=== PATIENT | male | born 1990 | race Caucasian/White ===

== ENCOUNTER → 2016-09-25 | Outpatient (CLI) | payer OTHER ==
[~2016-09-25] MED LIST: DOXY-278 PO
[2016-09-25 13:45] LABS: INR 1.05
[2016-09-25 13:49] LABS: MEAN CORPUSCULAR HEMOGLOBIN 27.7 pg (27.0-33.0); MEAN CORPUSCULAR HGB CONC 33.7 g/dl (32.0-36.5); MEAN CORPUSCULAR VOLUME 82.4 fl (80.0-96.0); RED CELL DISTRIBUTION WIDTH 12.6 % (11.5-14.5); WHITE BLOOD COUNT 8.3 K/mm3 (4.0-10.0)
[2016-09-25 13:57] LABS: ANION GAP 10 MEQ/L (8-16); BLOOD UREA NITROGEN 15 MG/DL (7-18); CALCIUM LEVEL 9.2 MG/DL (8.5-10.1); CARBON DIOXIDE LEVEL 26 MEQ/L (21-32); CHLORIDE LEVEL 107 MEQ/L (98-107); CREATININE FOR GFR 0.96 MG/DL (0.70-1.30); GLOMERULAR FILTRATION RATE > 60.0 (>60); GLUCOSE, FASTING 87 MG/DL (70-105); SODIUM LEVEL 143 MEQ/L (136-145)
== END ==
LOC: M SMT 09:28
PROVIDERS: ATTEND Nurse Practitioner Women's Health
DX: Z01.818 Encounter for other preprocedural examination (principal); N50.9 Disorder of male genital organs, unspecified

== ENCOUNTER → 2016-10-02 | Day surgery (SDC) | payer OTHER ==
[~2016-10-02] VITALS: Ht 177.8 cm; Wt 127.0 kg
[~2016-10-02] MED LIST changes: +BACT800T5 PO; +BACTRIM 160MG/800MG DS TAB PO SCH; +BUPIVACAINE HCL 0.25% 10 ML VIAL As Ordered ONE; +BUPIVACAINE HCL 0.25% 30 ML VIAL XX ONE; +KETOROLAC 60 MG/2 ML VIAL (J1885) As Ordered ONE; +LIDOCAINE 2% INJ 100 MG/5 ML SDV (FOR ANES.) As Ordered ONE; +LIDOCAINE 2% MDV 20 ML VIAL As Ordered ONE; +LIDOCAINE 2% MDV 20 ML VIAL XX ONE; +LR 1,000 ML IV SCH; +MEPERIDINE INJ 25 MG/ML VIAL (J2175) As Ordered ONE; +MEPERIDINE INJ 25 MG/ML VIAL (J2175) IV PRN; +MIDAZOLAM INJ 2 MG/2 ML VIAL (J2250) As Ordered ONE; +ONDANSETRON 4MG/2ML VIAL (J2405) As Ordered ONE; +PERCOCET 5MG/325MG TAB As Ordered ONE; +PERCOCET 5MG/325MG TAB PO SCH; +PERCOCET PO; +PROPOFOL 200 MG/20 ML VIAL As Ordered ONE; +ceFAZolin SOD 1 GM in D5W MINI-BAG PLUS 50 ML IV ONE; +dexameTHASONE 4 MG/ML 1ML VIAL (J1100) As Ordered ONE; +fentaNYL 100 MCG/2 ML INJECTION (J3010) As Ordered ONE; +fentaNYL 100 MCG/2 ML INJECTION (J3010) IV PRN; +fentaNYL 250 MCG/5 ML INJECTION (J3010) As Ordered ONE
[2016-10-02] MEDS: MEPERIDINE INJ 25 MG/ML VIAL (J2175) IV PRN ×2 (13:21→13:26)
[2016-10-02] MEDS: PERCOCET 5MG/325MG TAB PO PRN ×2 (13:40→14:30)
[2016-10-02 14:45] VITALS: BP 145/90
--- NOTE | 2016-10-03 06:39 | RO ---
DATE OF PROCEDURE: 10/02/2016 PREOPERATIVE DIAGNOSIS: Right testicular neoplasm. POSTOPERATIVE DIAGNOSIS: Right testicular neoplasm. PROCEDURE: Right radical orchiectomy. SURGEON: Dr. Elías Stevenson GARMENT SUPERVISOR: None. ANESTHESIA: General. COMPLICATIONS: None. ESTIMATED BLOOD LOSS: N/A. HISTORY OF PRESENT ILLNESS: This is a 25-year-old male patient that actually has a right testicular neoplasm, hard rock per patient. The patient has been treated with antibiotics without resolution. He has no pain at all. For this reason, he has consented for a right radical orchiectomy. PROCEDURE DESCRIPTION: In a patient under general anesthesia in supine position, after prepping and draping the area of concern which included the entire genitalia and abdomen, we started by doing an incision in the right inguinal canal, on top of the internal inguinal canal for about 5 cm in length transverse incision with a cold knife 15 blade. We then proceeded with electro Bovie cautery to cut the Charity and Camper's fascia. Once we found the sternal oblique fascia, we opened the external inguinal ring following the external oblique fascia fibers in a longitudinal oblique fashion. We then proceeded to evaluate and see the right spermatic cord. We dissected the right spermatic cord off the genitofemoral nerve and inguinal nerve, the inguinal nerve. We the cremasteric fibers also and dissected the spermatic cord completely. We passed a Pedro drain around it. We then pushed on the scrotal sac to actually push the testicle through the incision in the inguinal area. We the gubernaculum testis with electro Bovie cautery and ligated the gubernaculum testis with #3-0 silk stitch. Once the testicle was brought through the inguinal incision, we actually placed three clamps of hemostats to the base of the spermatic cord in the entrance of the peritoneum. I then cut between the first and second hemostats and the specimen was sent as right radical orchiectomy. We then proceeded to put an suture stitch, #0 silk stitch in the base of the first hemostat and took out the hemostat, tied the stitch times three. We then placed a second stitch with a #0 silk stitch below the remaining hemostat and removed the hemostat. We then placed a right angle clamp and clamped the spermatic cord stump again and placed a #0 silk tie also so the spermatic cord was secured times three with silks. There was no bleeding vessels. At that moment in time, we placed anesthesia in the inguinal nerve and then proceed to close the external oblique fascia in a running fashion with #3-0 Vicryl. We then proceeded to close the Camper's and Charity's fascia with a chromic #3-0 in separate stitches. We closed the skin with subcuticular #4-0 Monocryl. We placed Mastisol, Steri-Strips, Telfa and Tegaderm on top of the wound. PLAN: The patient will go home today with antibiotics and pain medication. Followup at [facility] in about 2 weeks. There were no complications during surgery.
== END | disposition home or self-care (01) ==
LOC: M SDC 09:19
PROVIDERS: ATTEND Urology
DX: D40.11 Neoplasm of uncertain behavior of right testis (principal); N50.9 Disorder of male genital organs, unspecified; Z72.0 Tobacco use
CPT/HCPCS: 54530; 88309; J0690; J1100; J1885; J2175; J2250; J2405; J3010

== ENCOUNTER → 2016-10-04 | Outpatient (CLI) | payer OTHER ==
[~2016-10-04] MED LIST changes: -BACTRIM 160MG/800MG DS TAB PO SCH; -BUPIVACAINE HCL 0.25% 10 ML VIAL As Ordered ONE; -BUPIVACAINE HCL 0.25% 30 ML VIAL XX ONE; +ISOVUE-370 76% 100ML VIAL (Q9967) As Ordered ONE; -KETOROLAC 60 MG/2 ML VIAL (J1885) As Ordered ONE; -LIDOCAINE 2% INJ 100 MG/5 ML SDV (FOR ANES.) As Ordered ONE; -LIDOCAINE 2% MDV 20 ML VIAL As Ordered ONE; -LIDOCAINE 2% MDV 20 ML VIAL XX ONE; -LR 1,000 ML IV SCH; -MEPERIDINE INJ 25 MG/ML VIAL (J2175) As Ordered ONE; -MEPERIDINE INJ 25 MG/ML VIAL (J2175) IV PRN; -MIDAZOLAM INJ 2 MG/2 ML VIAL (J2250) As Ordered ONE; -ONDANSETRON 4MG/2ML VIAL (J2405) As Ordered ONE; -PERCOCET 5MG/325MG TAB As Ordered ONE; -PERCOCET 5MG/325MG TAB PO SCH; -PROPOFOL 200 MG/20 ML VIAL As Ordered ONE; -ceFAZolin SOD 1 GM in D5W MINI-BAG PLUS 50 ML IV ONE; -dexameTHASONE 4 MG/ML 1ML VIAL (J1100) As Ordered ONE; -fentaNYL 100 MCG/2 ML INJECTION (J3010) As Ordered ONE; -fentaNYL 100 MCG/2 ML INJECTION (J3010) IV PRN; -fentaNYL 250 MCG/5 ML INJECTION (J3010) As Ordered ONE
--- NOTE | 2016-10-04 21:00 | REP ---
CT ABDOMEN AND PELVIS WITHOUT AND WITH CONTRAST: 10/04/2016. Clinical history: Testicular mass, preoperative testing/staging. Right orchiectomy indicated on patient's history sheet. Technique: Scanning through the abdomen before contrast followed by bolus of 100 ml of Isovue 370 and scanning through the abdomen and pelvis with rescanning after renal delay. Coronal and sagittal reconstructions reviewed. Bone windows also reviewed. No prior studies are available the time of this dictation. CT abdomen: Lung bases show the right side clear. In the left lower lobe there is a peripheral nodule, subpleural, about 9 mm. Prominent vessel extending to it. No effusion or other nodule/mass. No pleural thickening. I see no cardiomegaly, pericardial thickening or effusion. There is no hepatomegaly, splenomegaly, focal hepatic or splenic mass nor fatty infiltration. Gallbladder retracted. There is retained food in the stomach. No calcified gallstone. Pancreas unremarkable. Adrenal glands without nodule or mass. Kidneys show punctate calcification in pyramid, interpolar region, right about 3 mm and another cortical calcification interpolar region posteriorly about 2 mm. No hydronephrosis. There is a 4 mm stone in a pyramid or savannah of the lower pole on the right. Left side without stone. No hydronephrosis, hydroureter, cyst or solid mass. No perinephric fluid. The aorta is without aneurysm. There is aortocaval node measuring 13 mm seen on image 58. There are other nearby nodes to it about 9 mm on image 60, 15 mm on image 72 and a few tiny periaortic nodes on the left, the largest of which are 5.4 mm on image 49. Pancreas shows no mass or ductal dilatation or adjacent adenopathy. No pathologic sized peripancreatic nodes. There are a few mesenteric nodes. Most of these are 6 mm or smaller. There are scattered nodes adjacent to the cecum with a normal appendix. The nodes are 3 to 6 mm in size. No dilated small bowel loops. Colon shows no sign of colitis, diverticulitis, stricture or mass. Midline abdominal wall without hernia. The bone windows show lumbar and lower thoracic spine, posterior elements and the visualized ribs to be grossly intact. CT pelvis: The bony hips, pelvis, sacrum, SI joints and symphysis pubis were unremarkable. Ureters show no dilatation or stone. Bladder is without wall thickening, stone or mass. Distal left colon, sigmoid and rectum unremarkable as are the distal small bowel loops. I do not see pelvic lymphadenopathy. No inguinal or ventral hernia. There is a healing right inguinal incision evident. No ventral hernia in the pelvis. Seminal vesicles and prostate unremarkable. Intrinsic and extrinsic pelvic, hip proximal thigh and buttock musculature all unremarkable. Impression: 1. There has been prior inguinal surgery on the right which may reflect the patient's stated history of right orchiectomy. 2. Periaortic adenopathy up to 15 mm in the aortocaval region anterior to the aorta and vena cava with smaller nodes periaortic and other scattered mesenteric nodes and pericecal nodes with the size as described above. 2. Some nephrolithiasis without hydronephrosis, hydroureter, ureteral stone or bladder stone. 3. The liver, spleen, gallbladder, pancreas, adrenal glands and left kidney unremarkable. Signed by Kwaku Maldonado MD 10/05/2016 07:21 P
== END ==
LOC: M RAD 17:07
PROVIDERS: ATTEND Nurse Practitioner Women's Health
DX: N50.9 Disorder of male genital organs, unspecified (principal)
CPT/HCPCS: 74178; Q9967

== ENCOUNTER → 2016-10-23 | Outpatient (CLI) | payer OTHER ==
[~2016-10-23] MED LIST changes: -ISOVUE-370 76% 100ML VIAL (Q9967) As Ordered ONE
--- NOTE | 2016-10-23 09:21 | REP ---
Chest two views HISTORY: Testicular cancer Comparison: None The lungs are clear. The heart is normal in size. The pulmonary vasculature is normal in appearance. The bony structure is intact. IMPRESSION: No acute disease. Signed by Abdullahi Nolasco MD 10/23/2016 09:13 A
[2016-10-23 13:30] LABS: MEAN CORPUSCULAR HEMOGLOBIN 27.8 pg (27.0-33.0); MEAN CORPUSCULAR HGB CONC 33.9 g/dl (32.0-36.5); MEAN CORPUSCULAR VOLUME 82.1 fl (80.0-96.0); RED CELL DISTRIBUTION WIDTH 12.8 % (11.5-14.5); WHITE BLOOD COUNT 7.4 K/mm3 (4.0-10.0)
[2016-10-23 13:44] LABS: ANION GAP 6 MEQ/L (8-16); BLOOD UREA NITROGEN 10 MG/DL (7-18); CALCIUM LEVEL 8.8 MG/DL (8.5-10.1); CARBON DIOXIDE LEVEL 29 MEQ/L (21-32); CHLORIDE LEVEL 105 MEQ/L (98-107); CREATININE FOR GFR 0.85 MG/DL (0.70-1.30); GLOMERULAR FILTRATION RATE > 60.0 (>60); GLUCOSE, FASTING 87 MG/DL (70-105); INR 1.02; POTASSIUM SERUM 3.8 MEQ/L (3.5-5.1); SODIUM LEVEL 140 MEQ/L (136-145)
== END ==
LOC: M SMT 08:34
PROVIDERS: ATTEND Urology
DX: C62.91 Malignant neoplasm of right testis, unspecified whether descended or undescended (principal)

== ENCOUNTER → 2016-10-23 | Outpatient (CLI) | payer OTHER ==
--- NOTE | 2016-10-23 11:21 | ECGEPIP ---
Stationary ECG Study [facility] Test Date: 2016-10-23 Pat Name: GALA MAI Department: Room: - Gender: M Motion Picture Director: : 1990 Requested By: RADHA Barksdale Order Number: [id number] Reading MD: Michael Bonilla Measurements Intervals [place] Rate: 72 P: 8 [place]: 184 QRS: -10 QRSD: 115 T: 11 QT: 375 QTc: 411 Interpretive Statements SINUS RHYTHM MODERATE INTRAVENTRICULAR CONDUCTION DELAY Comparison tracing not on file Electronically Signed On 10-23-2016 11:20:53 EST by iMchael Bonilla
== END ==
LOC: M EKG 09:37
PROVIDERS: ATTEND Urology
DX: C62.91 Malignant neoplasm of right testis, unspecified whether descended or undescended (principal)

== ENCOUNTER 2016-11-05 11:00 | Inpatient (IN) | payer OTHER ==
--- NOTE | 2016-11-02 12:14 | CR ---
DATE OF CONSULTATION: 11/01/2016 PREOPERATIVE CLEARANCE CONSULTATION I was asked to him for preoperative clearance. He is going to be undergoing retroperitoneal lymphadenectomy by Dr. Stevenson on 11/12/2016. Initially was scheduled for 11/05/2016, but it is going to be on 11/12/2016 at [facility]. The patient did see Dr. Stevenson for a radical orchiectomy for testicular cancer. 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 The surgery was performed on 10/02/2016. The patient will be undergoing the above surgery for completion. He did have a CT scan that showed 1.5 cm retroperitoneal lymph nodes in the periaortic region. The patient states he has been feeling fine since he has had the radical orchiectomy has not had any fever or chills. Basically has not really had any testicular pain, has not had any penile irritation and no difficulty urinating. He has not had any erectile dysfunction either. 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 He does not have any other medical problems that he takes medications for. He did have right knee surgery performed back in 2014. That is the only other surgical history he has had other than the radical orchiectomy, which was done on 10/02/2016. PAST MEDICAL HISTORY: Significant for right knee surgery back in 2014. 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 The patient also morbidly obese, but is not diabetic, not on any regular medications. FAMILY HISTORY: Father, brother of an myocardial infarction (MT) at age 45. Mother hypothyroidism. He has two sisters, one with bipolar disorder. SOCIAL HISTORY: He lives with five friends. He works for [employer]. 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 He is a current smoker some days occasionally, not on a regular basis. Rarely consumes alcohol. No history of hepatitis, tuberculosis, HIV exposure, sexually transmitted disease, or intravenous (IV) drug use. MEDICATIONS: He does not have any medications that he is taking currently and he does not have any allergies to any medications. REVIEW OF SYSTEMS: He has not had any fever, chills or night sweats, or any unexplained weight loss or weight gain. HEENT: Has not had any diplopia. Has not had any epistaxis. Has not had any hoarseness. CARDIOVASCULAR: No chest pain, chest pressure. No shortness breath with exertion. No palpitations. RESPIRATORY: Denies any productive cough or hemoptysis, any increased wheezing or shortness breath with exertion. No history of asthma. GASTROINTESTINAL (GI): Denies any nausea, vomiting, melanotic stools, hematochesia, hematemesis or change in bowel habits. GENITOURINARY: denies any dysuria, polyuria or frequency. No penile dysfunction. Did have a radical orchiectomy 10/02/2016 for testicular cancer. See the above discussion for more details. ENDOCRINE: Negative for polyphagia, polydipsia, polyuria, cold or heat intolerance. HEMATOLOGIC: Testicular cancer with lymphovascular invasion. No history of anemia. NEUROLOGICAL: No upper or lower extremity paresthesia, numbness or tingling. No history of seizure disorder or syncope. PHYSICAL EXAMINATION: Reveals a 26-year-old obese male who does not appear to be any acute distress. Answers questions appropriately. Blood pressure 182/82, pulse 82, weight is 278, oxygen saturation 98% on room air. Body mass index (BMI) 40.5. HEENT: Head is normocephalic, atraumatic. Sclerae is nonicteric. Extraocular muscles are intact. Throat is without any erythema or exudate. Uvula elevates midline. No buccal lesions. NECK: Supple without any jugular venous distention (JVD), thyromegaly, adenopathy or carotid bruits. No supraclavicular or infraclavicular adenopathy. Anterior posterior cervical adenopathy. HEART: S1, S2 without any murmurs, rubs or gallops. No heaves or thrills. LUNGS: Clear to auscultation in all lung vivar. ABDOMEN: Nondistended. Bowel sounds present in all four quadrants. No organomegaly noted. No aortic or renal bruits by auscultation. He did not want to have testicular exam performed. See Dr. Stevenson' examination for more details. EXTREMITIES: No evidence of any pretibial, ankle or pedal edema. No evidence of any calf tenderness on palpation and pulses are 2+ dorsalis pedis, posterior tibialis and popliteal region. Femoral pulses are intact 2+ bilaterally. NEUROLOGICAL EXAMINATION: Cranial nerves II-XII are intact. There are no deficits present on this patient. No resting tremor present on this patient. Gait and station and normal. Upper and lower extremity strength is 5/5 in both upper and lower extremities. The patient does have a tattoo on his right his right deltoid. LABORATORY: I reviewed the labs that were performed by Dr. Stevenson. EKG showed some interventricular conduction delay. There is no comparison EKG. There is no acute ST or T-wave changes seen, and this was done on a 26-year-old male. Complete blood count (CBC) came back in normal range with a white cell count 7.4, hemoglobin 14.6, hematocrit 43, platelet count 256,000. Did have AFP tumor marker performed by Dr. Stevenson. BUN 10 and creatinine 0.85. INR was 1.02. IMPRESSION: 1. A 26-year male to undergo a retroperitoneal lymphadenectomy by Dr. Stevenson on 11/12/2016 at [facility]. The patient is medically optimized to undergo this procedure. This is due to embryonal carcinoma with lymphovascular invasion that is seen on the CT scan that showed 1.5 cm retroperitoneal lymph nodes in the periaortic region. 2. Morbid obesity. It could be a risk for hypoxia. I would monitor his oxygen saturations and employ oxygen as needed. Patient is medically optimized to undergo this procedure.
[~2016-11-05] VITALS: Ht 177.8 cm; Wt 125.2 kg
[2016-11-12] MEDS ORDERED: ROCURONIUM BROMIDE 50 MG/5 ML VIAL As Ordered ONE ×2 (06:16→08:13)
[2016-11-12] MEDS ORDERED: PROPOFOL 200 MG/20 ML VIAL As Ordered ONE (06:16)
[2016-11-12] MEDS ORDERED: GLYCOPYRROLATE INJ 0.2 MG/ML 2 ML VIAL As Ordered ONE (06:16)
[2016-11-12] MEDS ORDERED: NEOSTIGMINE 1MG/ML 5 ML SYRINGE (J2710) As Ordered ONE (06:16)
[2016-11-12] MEDS ORDERED: dexameTHASONE 4 MG/ML 1ML VIAL (J1100) As Ordered ONE ×2 (06:16→08:13)
[2016-11-12] MEDS ORDERED: ONDANSETRON 4MG/2ML VIAL (J2405) As Ordered ONE ×2 (06:16→14:57)
[2016-11-12] MEDS ORDERED: LIDOCAINE 2% INJ 100 MG/5 ML SDV (FOR ANES.) As Ordered ONE (06:16)
[2016-11-12] MEDS ORDERED: LR 1,000 ML IV SCH ×2 (06:30→15:15)
[2016-11-12] MEDS ORDERED: MIDAZOLAM INJ 2 MG/2 ML VIAL (J2250) As Ordered ONE (08:13)
[2016-11-12] MEDS ORDERED: fentaNYL 250 MCG/5 ML INJECTION (J3010) As Ordered ONE ×2 (08:13→08:39)
[2016-11-12] MEDS ORDERED: ceFAZolin 1GM INJ (J0690) As Ordered ONE (12:46)
[2016-11-12] MEDS ORDERED: fentaNYL 100 MCG/2 ML INJECTION (J3010) As Ordered ONE ×2 (12:56→15:00)
[2016-11-12] MEDS ORDERED: LIDOCAINE 2% MDV 20 ML VIAL As Ordered ONE (14:00)
[2016-11-12] MEDS ORDERED: BUPIVACAINE HCL 0.5% 10 ML VIAL As Ordered ONE (14:00)
[2016-11-12] MEDS ORDERED: PERCOCET 5MG/325MG TAB PO PRN (15:15)
[2016-11-12] MEDS ORDERED: hydrALAZINE INJ 20 MG/ML VIAL As Ordered ONE (15:15)
[2016-11-12] MEDS ORDERED: ONDANSETRON 4MG/2ML VIAL (J2405) IV PRN ×2 (15:15→15:30)
[2016-11-12] MEDS ORDERED: fentaNYL 100 MCG/2 ML INJECTION (J3010) IV PRN (15:15)
[2016-11-12 15:27] LABS: MEAN CORPUSCULAR HEMOGLOBIN 28.3 pg (27.0-33.0); MEAN CORPUSCULAR HGB CONC 34.2 g/dl (32.0-36.5); MEAN CORPUSCULAR VOLUME 82.9 fl (80.0-96.0); RED CELL DISTRIBUTION WIDTH 12.8 % (11.5-14.5); WHITE BLOOD COUNT 15.8 K/mm3 (4.0-10.0)
[2016-11-12] MEDS ORDERED: MORPHINE 4 MG/ML 1ML SYRINGE IV PRN (15:30)
[2016-11-12] MEDS: HYDROmorphone HCL 1 MG/ML SYRINGE (J1170) IV PRN ×2 (15:35→15:40)
[2016-11-12 15:40] LABS: ANION GAP 13 MEQ/L (8-16); BLOOD UREA NITROGEN 12 MG/DL (7-18); CALCIUM LEVEL 8.6 MG/DL (8.5-10.1); CARBON DIOXIDE LEVEL 21 MEQ/L (21-32); CHLORIDE LEVEL 105 MEQ/L (98-107); CREATININE FOR GFR 1.32 MG/DL (0.70-1.30); GLOMERULAR FILTRATION RATE > 60.0 (>60); GLUCOSE, FASTING 145 MG/DL (70-105); POTASSIUM SERUM 4.3 MEQ/L (3.5-5.1); SODIUM LEVEL 139 MEQ/L (136-145)
[2016-11-12 16:30] VITALS: BP 143/74
[2016-11-12] MEDS: ACETAMINOPHEN 650MG ER TAB (TYLENOL ARTHRITIS) PO SCH ×3 (16:41→22:44)
[2016-11-12] MEDS: KCL 20MEQ IN D5/0.45NS 1000ML 1,000 ML IV SCH ×2 (16:42→22:32)
[2016-11-12 17:00] VITALS: BP 164/90
[2016-11-12 17:30] VITALS: BP 121/65
[2016-11-12] MEDS ORDERED: PANTOPRAZOLE 40MG INJ (PROTONIX) (C9113) IV SCH (18:00)
[2016-11-12] MEDS ORDERED: LevoFLOXacin IV 500 MG in APPROPRIATE DILUENT 1 EA IV SCH (18:00)
[2016-11-12 18:30] VITALS: BP 120/60
[2016-11-12 20:00] VITALS: BP 143/71
[2016-11-12 20:45] VITALS: BP 120/59
[2016-11-12] MEDS: KETOROLAC 30 MG/ML VIAL (J1885) IV SCH (22:32)
--- NOTE | 2016-11-12 23:19 | RO ---
DATE OF PROCEDURE: 11/12/2016 PREOPERATIVE DIAGNOSES: Right testicular neoplasm plus retroperitoneal lymphadenopathy. POSTOPERATIVE DIAGNOSES: Right testicular neoplasm plus retroperitoneal lymphadenopathy. SURGERY PERFORMED: Robotic-assisted retroperitoneal lymph node dissection for testicular cancer. SURGEON: Elías Stevenson MD LAMP STACK DEVELOPER: Edita Guerra ANESTHESIA: General. COMPLICATIONS: None. ESTIMATED BLOOD LOSS: 75 mL. 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 The patient had a CT scan of the abdomen and pelvis and chest x-ray. It shows a 1.5 cm neoplasm in the interaortocaval region. There are no enhancing lesions, however. For this reason, he has consented for a robotic-assisted right retroperitoneal lymph node dissection for testicular cancer. PROCEDURE DESCRIPTION: In a patient under general anesthesia with an orogastric tube draining gastric content and a Mann catheter, #16-Latvian, draining the bladder, we positioned the patient in decubitus lateral position with the left side down and the right side up. We flexed the table at the level of the waist, and we secured the patient with a beanbag and straps. We then proceeded to prep and drape the area of concern, which included the entire hemiabdomen on the right side, the right flank and right iliac fossa. We then proceeded to actually do an incision in the midclavicular line 4 cm above umbilicus, a 2 cm transverse incision. Through this incision, we opened the peritoneal cavity and introduced a 12 mm port. We inflated the balloon with 20 mL. We then insufflated the abdomen with CO2 at a maximum pressure of 15 at high flow. We then placed a hand-held robotic camera assistance through the optic port, 30-degree lens. This helped us to place the other trocars. A midclavicular line trocar subcostally was placed, an 8 mm metallic trocar. In the right iliac fossa in the midclavicular line, also we placed another 8 mm metallic trocar. 8 cm away from this one in anterior axillary line, we placed a long 8 mm metallic trocar for the third arm. Between the left arm and the optic, we placed a 5 mm VersaStep trocar for surgical supply assistant port. Between the optic port and the right arm in the midline, we placed a 12 mm VersaStep trocar for assistance. We then proceeded to actually dock the robot. On the left arm we used monopolar scissors, and on the right arm we used bipolar PK. We then proceeded to actually dissect the line of Toldt starting at the cecum, retracting the cecum toward the midline, and dissecting the line of Toldt out to the transverse colon, mobilizing the ascending colon toward the midline. We then proceeded to actually identify the ureter and mobilize the ureter laterally. We identified the ureter crossing the iliac vessels. At that moment in time, we started our lymphadenectomy. We dissected the external iliac lymph node packets from crossing the ureter up to the bifurcation of the aorta. We dissected all the lymph node packets and put them into a 10 mm Endo Catch bag and we sent for lymph node count and pathology. We secured hemostasis with Hem-o-loks and bipolar PK. We then proceeded to actually mobilize the vena cava and split the lymph nodes on top of the vena cava. In a [id number] technique, we rolled the cava medially and dissected the lumbars and ligated the lumbars with Hem-o-loks times two and cut in the middle. We then secured lymphostasis with Hem-o-loks and bipolar PK, mobilizing the whole lymph nodes of the paracaval lymph nodes from bifurcation of the aorta toward the right hilar lymph nodes and the hilar pedicle on the right side. These lymph nodes were placed in a packet also and sent for permanent pathology analysis. We then proceeded to actually dissect the anterior vena cava and in between the anterior vena cava and the aorta, there was a 1.5 cm mass in the interaortocaval region and near the bifurcation of the aorta. At that moment in time, we dissected the mass and sent it for pathology analysis also. We then proceeded to dissect the interaortocaval lymph nodes by splitting and rolling the vena cava laterally and mobilizing the vena cava laterally and lifting it with a suction device. We could actually see the spine and secured lymphostasis with Hem-o-loks and also secured the lumbar veins with Hem-o-loks times two and cut in the middle. This allowed us to mobilize the entire vena cava to lateral and medial aspect and lift it up completely, securing all the lymph nodes around it. We then proceeded to extract the interaortocaval lymph nodes, securing the superior limit at the level of the right iliac artery and, with Hem-o-loks, securing the lymphostasis. We then placed it into a 10 mm Endo Catch bag also and sent it for pathology analysis. We then approached the para-aortic area and dissected the contralateral vein of the kidney and the contralateral left artery also, secured lymphostasis with Hem-o-loks at that level, and then dissected the para-aortic lymph nodes from the left hilum toward the inferior mesenteric artery. We sent it for permanent pathology analysis, also. We then proceeded to place FloSeal into the interaortocaval region and paracaval region and then took all the trocars out, took all the instruments out, undocked the robot, and took all the trocars out. All the specimens came out through the midline incision where the optic port was. We then closed the incision of the optic port in two layers with #2-0 Vicryl on UR-6 needles times four, each layer. We then closed the skin with #4-0 Monocryl and placed Mastisol, Steri-Strips, 2 x 2's, and Tegaderm. PLAN: The patient will pass through recovery and then to the floor. Once he is tolerating regular diet and ambulating very well, he will be discharged home.
[2016-11-13] VITALS: BP 115/59
[2016-11-13 04:00] VITALS: BP 114/56
[2016-11-13] MEDS: ACETAMINOPHEN 650MG ER TAB (TYLENOL ARTHRITIS) PO SCH (05:58)
[2016-11-13] MEDS: KETOROLAC 30 MG/ML VIAL (J1885) IV SCH (06:04)
[2016-11-13 06:46] LABS: MEAN CORPUSCULAR HEMOGLOBIN 27.9 pg (27.0-33.0); MEAN CORPUSCULAR HGB CONC 33.6 g/dl (32.0-36.5); MEAN CORPUSCULAR VOLUME 83.2 fl (80.0-96.0); RED CELL DISTRIBUTION WIDTH 12.9 % (11.5-14.5); WHITE BLOOD COUNT 11.9 K/mm3 (4.0-10.0)
[2016-11-13 07:04] LABS: ANION GAP 7 MEQ/L (8-16); BLOOD UREA NITROGEN 10 MG/DL (7-18); CARBON DIOXIDE LEVEL 27 MEQ/L (21-32); CHLORIDE LEVEL 107 MEQ/L (98-107); CREATININE FOR GFR 0.85 MG/DL (0.70-1.30); GLOMERULAR FILTRATION RATE > 60.0 (>60); GLUCOSE, FASTING 120 MG/DL (70-105); POTASSIUM SERUM 3.9 MEQ/L (3.5-5.1); SODIUM LEVEL 141 MEQ/L (136-145)
[2016-11-13] MEDS: KCL 20MEQ IN D5/0.45NS 1000ML 1,000 ML IV SCH (07:30)
[2016-11-13] MEDS ORDERED: PERCOCET PO (07:54)
[2016-11-13] MEDS ORDERED: LEVA500T PO (07:56)
[2016-11-13 08:00] VITALS: BP 116/55
--- NOTE | 2016-11-13 08:20 | DSES ---
DATE OF ADMISSION: 11/12/2016 DATE OF DISCHARGE: 11/13/16 ADMISSION DIAGNOSIS: Right testicular neoplasm with lymphadenopathy, retroperitoneal. DISCHARGE DIAGNOSIS: Right testicular neoplasm with retroperitoneal lymphadenopathy. SURGERY PERFORMED: Robotic-assisted retroperitoneal lymph node dissection for testicular neoplasm. SURGEON: Dr. Elías Stevenson. ADMITTING SURGEON: Dr. Elías Stevenson. DISCHARGE SURGEON: Dr. Elías Stevenson. SURGERY PERFORM DATE: 11/12/2016 HISTORY OF PRESENT ILLNESS: This is a 26-year-old male patient with a history of right testicular neoplasm that actually had a radical orchiectomy showing a [id number] embryonal carcinoma of the testicle with lymphovascular invasion. A staging actually showed some 1 to 1.5 cm interaortocaval lymph nodes and lymphadenopathy. For this reason, he was consented for robotic-assisted retroperitoneal lymph node dissection for testicular cancer. This was carried out on 11/12/2016. HOSPITALIZATION COURSE: The patient did very well. By postoperative day #1, he was already tolerating regular diet 6 hours after surgery. He is ambulating very well. Pain was controlled very well with oral pain medication. We then discontinued the Mann and patient voided very well. On postoperative day #1, he was already ambulating very well three times a day. He was voiding by himself. His pain was well controlled with oral pain medication. He had no back pain. No mobilization problems. He requested to go home and we agreed upon this. He will go home with the following indications: - Percocet 5/325 mg one tablet by mouth every 6 hours as needed for pain - Levaquin one tablet by mouth daily for 10 days He will followup at [facility] in about 10 days. He cannot carry heavy weight lifting above [address] under narcotics. He may shower in 2 days. No sit baths. [facility]
== END 2016-11-13 09:35 | disposition home or self-care (01) | DRG 988 ==
LOC: M OR 11-12 06:22 → M PED 11-12 16:31
PROVIDERS: ADMIT Urology; ATTEND Urology
PROC: 8E0W4CZ Robotic Assisted Procedure of Trunk Region, Percutaneous Endoscopic Approach (ICD-10-PCS; 2016-11-12)
PROC: 07BD4ZX Excision of Aortic Lymphatic, Percutaneous Endoscopic Approach, Diagnostic (ICD-10-PCS; principal; 2016-11-12 07:30)
DX: C62.91 Malignant neoplasm of right testis, unspecified whether descended or undescended (principal); C77.2 Secondary and unspecified malignant neoplasm of intra-abdominal lymph nodes; E66.01 Morbid (severe) obesity due to excess calories

== ENCOUNTER → 2016-12-03 | Outpatient (CLI) | payer OTHER ==
[~2016-12-03] MED LIST changes: +LEVA500T PO
--- NOTE | 2016-12-04 08:02 | RADONC ---
RADIATION ONCOLOGY CONSULTATION NOTE DATE: 12/03/2016 CHART NUMBER: [id number] DIAGNOSIS: Nonseminomatous testicular cancer. STAGE: IIA, T2N1M0. ECOG PERFORMANCE STATUS: 0. CONSULTATION NOTE: Mr. 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 HISTORY OF PRESENT ILLNESS: The patient was in his usual state of health until recently when he felt a lump in his right testis. He was seen by Dr. Stevenson and on 10/02/2016 underwent a right radical orchiectomy. Pathology revealed an embryonal carcinoma involving 80% of the testicular volume with focal lymph vascular invasion. No invasion of the tunica vaginalis was seen. There was no invasion of the base of the spermatic cord or epididymis seen. The tumor was therefore staged as a pT2, NXMX. A CT scan was done on 10/04/2016 which showed a 13 mm aortocaval node notable. On 11/12/2016 the patient underwent periaortic lymph dissection and pathology revealed one 2 cm lymph node with metastatic embryonal carcinoma. The other 15 lymph nodes were negative for malignancy. No extranodal extension was noted. The patient has done well since surgery and is now presenting to discuss his post surgical options. PAST MEDICAL HISTORY: The patient's past medical history is noncontributory. He has been in excellent health. ALLERGIES: The patient has no known drug allergies. SOCIAL HISTORY: The patient smokes cigarettes and drinks alcohol socially. FAMILY HISTORY: The patient's family history is negative for testicular cancer or other malignancies. REVIEW OF SYSTEMS: The patient's review of systems is positive for some anxiety and anorexia but is otherwise noncontributory. He denies nausea, vomiting, fevers, chills, night sweats, diplopia, headaches, anxiety or depression, anorexia, weight loss, visual disturbances, chest pain, urinary or bowel difficulties, bone pain, or neurological problems. Vital signs: O2 saturation 97%, blood pressure 130/80, temperature 98.5, pulse 70, respirations 20, height 5 feet 10 inches, weight 277.6 pounds. PHYSICAL EXAM: The patient is a well-developed, well-nourished 26-year-old white male in no acute distress. HEENT: Exam is normocephalic, atraumatic. Extraocular movements are intact. The remainder of the physical examination was deferred at this time. ASSESSMENT: I had a very lengthy discussion with this patient and I have reviewed some of the literature as well as the NCCN guidelines for this disease. At this time I do not see a role for external beam radiation. Indeed we discussed the probability that he is disease-free at this point. I have discussed the findings and in a patient with nonseminomatous testicular cancer who have found to have found to have five or fewer lymph nodes and none larger than 2 cm (pN1) surgery alone as successful in 80-90% of men well about 10-20% will have recurrence. In essence the retroperitoneal lymph node dissection and cure most patients with small lymph node metastases. I discussed the possibility of systemic therapy with him. This may reduce the chances of recurrence from 10-20% down to 1%. I will defer to the expertise of our medical oncologist with regards to his eligibility and potential benefits from systemic therapy. I am referring this patient at this point to our medical oncology division for their expert opinions. I see no role at this point for radiation therapy and I have not set him up for a followup in our office. He will also continue to be followed by Dr. Stevenson. Thank you for allowing us to participate in the care of this very pleasant gentleman. If I could be of any further assistance please free to contact me anytime. cc: MD Jeremiah Dickerson Jr, MD Alejandro Rodriguez, MD
== END ==
LOC: M ONCR 13:10
PROVIDERS: ATTEND Radiology Radiation Oncology
DX: C62.91 Malignant neoplasm of right testis, unspecified whether descended or undescended (principal)

== ENCOUNTER → 2016-12-20 | Outpatient (CLI) | payer OTHER ==
--- NOTE | 2016-12-20 11:10 | REP ---
Chest two views HISTORY: Testicular carcinoma Comparison: 10/23/2016 The lungs are clear. The heart is normal in size. The pulmonary vasculature is normal in appearance. The bony structure is intact. IMPRESSION: No acute disease. Signed by Abdullahi Nolasco MD 12/20/2016 11:02 A
[2016-12-20 13:56] LABS: ANION GAP 7 MEQ/L (8-16); BLOOD UREA NITROGEN 11 MG/DL (7-18); CALCIUM LEVEL 9.3 MG/DL (8.5-10.1); CARBON DIOXIDE LEVEL 28 MEQ/L (21-32); CHLORIDE LEVEL 106 MEQ/L (98-107); CREATININE FOR GFR 0.89 MG/DL (0.70-1.30); GLOMERULAR FILTRATION RATE > 60.0 (>60); GLUCOSE, FASTING 87 MG/DL (70-105); POTASSIUM SERUM 4.3 MEQ/L (3.5-5.1); SODIUM LEVEL 141 MEQ/L (136-145)
[2016-12-20 14:07] LABS: MEAN CORPUSCULAR HEMOGLOBIN 27.3 pg (27.0-33.0); MEAN CORPUSCULAR HGB CONC 33.2 g/dl (32.0-36.5); MEAN CORPUSCULAR VOLUME 82.3 fl (80.0-96.0); RED CELL DISTRIBUTION WIDTH 12.6 % (11.5-14.5); WHITE BLOOD COUNT 6.5 K/mm3 (4.0-10.0)
== END ==
LOC: M SMT 09:34
PROVIDERS: ATTEND Urology
DX: C62.91 Malignant neoplasm of right testis, unspecified whether descended or undescended (principal)

== ENCOUNTER → 2016-12-20 | Outpatient (CLI) | payer OTHER ==
[~2016-12-20] MED LIST changes: +ISOVUE-370 76% 100ML VIAL (Q9967) As Ordered ONE
--- NOTE | 2016-12-20 12:13 | REP ---
REASON: Testicular carcinoma. COMPARISON: 10/04/2016 The exam was performed before and after intravenous contrast administration and without oral or bowl preparatory contrast administration. Contrast utilized 100 mL Isovue 370. The lung bases are unchanged. There are no pleural or pericardial effusions. There is an incidental left lower lobe calcified granuloma status quo. The precontrast enhanced portion of the examination shows hepatic and splenic densities to be within normal limits. There are no choleliths. There are two tiny, right-sided nephroliths not causing obstructive phenomena and unchanged from the prior exam. An additional right inferior pole nephrolith seen on the prior exam is no longer present. That nephrolith now resides in the proximal right ureter just distal to the ureteropelvic junction and is causing mild to moderate right-sided hydronephrosis and proximal hydroureter. There are no left nephroliths. There are no choleliths. Contrast-enhanced portion of the examination shows the liver, gallbladder, spleen, pancreas, and adrenal glands to be within normal limits and unchanged. There are no enhancing renal lesions. Right-sided hydronephrosis and proximal hydroureter noted status quo. The small right-sided proximal ureterolith measures 6 mm in its greatest dimension. The abdominal aorta is unchanged. There is a new 5.3 x 5 x 14.5 cm sized right-sided para-aortic/retroperitoneal low density mass which resides along the anterior surface of the right psoas muscle and has water Hounsfield unit readings. This large fluid collection shows no evidence of abnormal contrast enhancement. There is no evidence of free intraperitoneal air. The bowel loops and their mesenteries are within normal limits. There is mild thickening of the right lateral conal fascia along with mild Gerota's and Zuckerkandl's fascia on the right with slight right-sided perinephric stranding, all likely secondary to the obstructive phenomena caused by the proximal right ureterolith. CT PELVIS: The pelvis bowel loops and their mesenteries are within normal limits. There is no free fluid or free air. There is no pelvic mass or adenopathy. Bone window technique throughout the exam shows the osseous structures to be stable and intact. IMPRESSION: 1. Obstructing proximal right ureterolith with resultant findings as described above. 2. New retroperitoneal fluid collection, which appears well encapsulated. The exact etiology of this is uncertain and needs to be correlated clinically with appropriate followup. 3. Other findings as described above. Signed by Yariel Lee DO 12/20/2016 03:08 P
== END ==
LOC: M RAD 09:01
PROVIDERS: ATTEND Urology
DX: C62.91 Malignant neoplasm of right testis, unspecified whether descended or undescended (principal)
CPT/HCPCS: 74178; Q9967

== ENCOUNTER → 2016-12-20 | Outpatient (CLI) | payer OTHER ==
[~2016-12-20] MED LIST changes: -ISOVUE-370 76% 100ML VIAL (Q9967) As Ordered ONE
== END ==
LOC: M SMT 09:38
PROVIDERS: ATTEND Internal Medicine Medical Oncology
DX: C62.90 Malignant neoplasm of unspecified testis, unspecified whether descended or undescended (principal)

== ENCOUNTER → 2017-01-13 | Outpatient (CLI) | payer OTHER ==
--- NOTE | 2017-01-13 15:40 | REP ---
Clinical: Nephrolithiasis. Comparison: 12/20/2016. Findings: Acute right-sided obstructive uropathy is appreciated with perinephric stranding and hydroureteronephrosis secondary to a 4 mm obstructing calculus in the mid/distal ureter at the S1 level. Few nonobstructing 1 mm right renal calculi are also appreciated. The left kidney and ureter appear normal. The bladder is unremarkable. The fluid collection in the right paracaval retroperitoneal space at the level of the kidney as near completely resolved and now measures approximately 2.4 x 2.3 cm transverse diameter and roughly 8.5 cm in craniocaudal length. Liver, spleen, pancreas, gallbladder, bilateral adrenal glands are normal. The enteric system is without obstruction or acute inflammatory process. Normal terminal ileum and appendix are identified in the right lower quadrant. Pelvis demonstrates normal bladder and age appropriate prostate/seminal vesicles. No ascites. No significant adenopathy. No free air. Lung bases demonstrate a small chronic calcified granuloma. Impression: 1. Continued evidence for right-sided obstructive uropathy with the 4 mm calculus now identified in the mid/distal ureter. Few stable nonobstructing right renal calculi unchanged. 2. Fluid collection in the right paracaval retroperitoneal space has considerably decreased in size from prior examination. Signed by Trevor Breen MD 01/13/2017 03:31 P
== END ==
LOC: M RAD 14:53
PROVIDERS: ATTEND Urology
DX: N20.1 Calculus of ureter (principal)

== ENCOUNTER → 2017-05-08 | Outpatient (CLI) | payer OTHER ==
[~2017-05-08] MED LIST changes: +LEVA1TAB2 PO; -LEVA500T PO
[2017-05-10 08:07] LABS: HCG SERUM TUMOR MARKER QUANT < 1 mIU/mL (0-3)
[2017-05-11 00:06] LABS: (LD) FRACTION 1 21 % (17-32); (LD) FRACTION 2 34 % (25-40); (LD) FRACTION 3 23 % (17-27); (LD) FRACTION 4 11 % (5-13); (LD) FRACTION 5 11 % (4-20); LDH 169 IU/L (121-224)
== END ==
LOC: M LAB 14:59
PROVIDERS: ATTEND Urology
DX: C62.01 Malignant neoplasm of undescended right testis (principal)

== ENCOUNTER → 2017-05-08 | Outpatient (CLI) | payer OTHER ==
[~2017-05-08] MED LIST changes: +GASTROGRAFIN SOLUTION 30ML (Q9963) As Ordered ONE; +ISOVUE-370 76% 100ML VIAL (Q9967) As Ordered ONE
--- NOTE | 2017-05-08 15:52 | REP ---
CT study of the abdomen and pelvis without and with IV contrast: With oral contrast. History: Testicular cancer. Comparison study: January 13, 2017 CT contrast dose: 100 ml of Isovue [address] findings: Preliminary digital technology auditor radiograph is unremarkable. The lung bases again demonstrate two calcified granuloma in the left base, unchanged from the comparison study October 04, 2016. The liver and the spleen are normal in size and homogeneous in texture. No adrenal lesion is seen. No pancreatic or gallbladder abnormality is observed. The kidneys enhance symmetrically. There is no evidence of renal mass or hydronephrosis. There are two intrarenal calculi in the upper pole on the right consistent with intrarenal nephrolithiasis. The previously noted right ureteral stone is no longer apparent. No retroperitoneal mass or adenopathy is noted. The 2.3 x 2.4 cm right pericaval retroperitoneal low density lesion seen on the January 13, 2017 prior study has resolved. No new retroperitoneal mass or adenopathy is observed. There are two or three left periaortic lymph nodes below the level of the left renal vascular pedicle, unchanged from prior studies. There are some postsurgical changes in the right inguinal canal post right orchiectomy. No pelvic mass or adenopathy is seen. No bony destructive lesion is appreciated. Impression: 1. The right pericaval retroperitoneal low density area seen previously has resolved. 2. Intrarenal nephrolithiasis on the right without hydronephrosis or ureteral stone. 3. Old granulomatous changes in the left lung. Otherwise unremarkable. Signed by Derrick Rodriguez MD 05/08/2017 03:59 P
== END ==
LOC: M RAD 12:46
PROVIDERS: ATTEND Internal Medicine Medical Oncology
DX: Z85.47 Personal history of malignant neoplasm of testis (principal); N20.0 Calculus of kidney
CPT/HCPCS: 74178; Q9963; Q9967

== ENCOUNTER → 2017-06-13 | Outpatient (REF) | payer OTHER ==
[~2017-06-13] MED LIST changes: -GASTROGRAFIN SOLUTION 30ML (Q9963) As Ordered ONE; -ISOVUE-370 76% 100ML VIAL (Q9967) As Ordered ONE
== END ==
LOC: M LAB REF 16:15
PROVIDERS: ATTEND Nurse Practitioner Family
DX: R68.82 Decreased libido (principal)